=== PATIENT | female | born 1945 | race Caucasian/White ===

== ENCOUNTER 2019-11-22 20:14 | Emergency (ER) | payer OTHER ==
[2019-11-22] MEDS ORDERED: SODIUM CHLORIDE 1,000 ML IV STA (20:33)
[2019-11-22] MEDS ORDERED: FAMOTIDINE 20 MG/50 ML IVPB 20 MG/50 ML MG IVPB ONE ×2 (20:33→21:12)
--- NOTE | 2019-11-22 20:33 | PDOC ---
Rapid Medical Evaluation Time Seen by Provider: 11/22/19 20:26 Medical Evaluation: 11/22/19 20:29 I performed a brief in-person evaluation of this patient. Pt is a 74 y/o female who presents to the ED with complaint of abdominal pain in the epigastrum and blood in her stool. Blood in stool has been about 1 week. The epigastric pain has been for the last 2 months. She admits to nausea. She was seen by her doctor and is to be scheduled for an endoscopy. H/o HLD, heart murmur, nodules in lungs. Pertinent physical exam findings: uncomfortable appearing but not toxic, no pallor, no respiratory distress. I have ordered the following: labs, defer imaging to ED provider Patient to proceed to ED for further evaluation. Discharge Disposition - Diagnosis Blood in stool - Referrals - Patient Instructions - Post Discharge Activity
[2019-11-22 20:34] VITALS: TEMP 98.4; BMI 20.1
[2019-11-22 21:36] LABS: BASO % 0.3 % (0-2.0); HEMATOCRIT 41.7 % (32.4-45.2); HEMOGLOBIN 13.8 GM/dL (10.7-15.3); LYMPH % 28.7 % (8-40); MCH 31.4 pg (25.7-33.7); MCHC 33.1 g/dl (32.0-36.0); MEAN CELL VOLUME 94.7 fl (80-96); MEAN PLT VOLUME 8.1 fl (7.5-11.1); MONO % 8.7 % (3.8-10.2); NEUT % 61.3 % (42.8-82.8); PLATELET COUNT 309 K/MM3 (134-434); RDW 13.6 % (11.6-15.6); WHITE BLOOD COUNT 8.2 K/mm3 (4.0-10.0)
[2019-11-22 22:11] LABS: ALBUMIN 4.2 g/dl (3.4-5.0); ALK PHOS 64 U/L (45-117); ANION GAP 10 MMOL/L (8-16); BLOOD UREA NITROGEN 13.6 mg/dL (7-18); CALCIUM 9.4 mg/dL (8.5-10.1); CHLORIDE 103 mmol/L (98-107); CO2 27 mmol/L (21-32); CREATININE 0.8 mg/dL (0.55-1.3); GLUCOSE,RANDOM 103 mg/dL (74-106); LIPASE 218 U/L (73-393); SGOT/AST 27 U/L (15-37); SGPT/ALT 22 U/L (13-61); SODIUM 139 mmol/L (136-145); TOT PROT 7.7 g/dl (6.4-8.2)
--- NOTE | 2019-11-22 23:23 | PDOC ---
History of Present Illness - General History Source: Patient, Family Exam Limitations: Language Barrier - History of Present Illness Initial Comments: 11/22/19 23:02 Patient is a 74 year old female with history of "murmur" and cholecystectomy presents to the ED with 2 months of epigastric burning and chest pressure, which is constant and does not change with eating. She states that food feels "stuck" in her throat upon swallowing, but does not have painful swallowing. She has occasional nausea without vomiting. Occasional night sweats but not sure how often. She has lack of appetite and unintentional weight loss of nearly 15 lbs over 2 months. She's had hematochezia with every bowel movement for 1 week, described as bright red, and denies pain with defecation. She had been working on getting an endoscopy done with GI, but has been having difficulty with scheduling. She also reports chest pain, occasional SOB with exertion, orthopnea, but denies LE edema and cough. No history of blood clots and is not on a blood thinner. Denies lightheadedness, dizziness, and syncope. <Pj Faulkner - Last Filed: 11/23/19 02:06> <Janette Cardenas - Last Filed: 11/23/19 02:15> - General Chief Complaint: Rectal Bleed Stated Complaint: RECTAL BLEEDING Time Seen by Provider: 11/22/19 20:26 Past History - Medical History Cardiac Disorders: Yes (heart murmur) COPD: No Hypercholesterolemia: Yes Other medical history: lung nodules - Surgical History Cholecystectomy: Yes - Psycho-Social/Smoking History Smoking History: Never smoked - Substance Abuse Hx (Audit-C & DAST Scrn) How often the patient has a drink containing alcohol: Never Score: In Men: 4 or > Positive; In Women: 3 or > Positive: 0 Screen Result (Pos requires Nsg. Audit-10AR): Negative <Pj Faulkner - Last Filed: 11/23/19 02:06> <Janette Cardenas - Last Filed: 11/23/19 02:15> - Medical History Allergies/Adverse Reactions: Allergies Allergy/AdvReac Type Severity Reaction Status Date / Time No Known Allergies Allergy Verified 11/22/19 20:34 Home Medications: Ambulatory Orders Famotidine [Pepcid -] 20 mg PO DAILY #30 tablet 07/04/20 Nitrofurantoin Monohyd/M-Cryst [Macrobid -] 100 mg PO BID #6 capsule 11/23/19 Review of Systems - Review of Systems Able to Perform ROS?: Yes Is the patient limited Armenian proficient: No Constitutional: Yes: Loss of Appetite, Night Sweats, Unintentional Wgt. Loss (about 15 lbs of weight loss). No: Fever HEENTM: Yes: Difficulty Swallowing. No: Throat Pain Respiratory: Yes: Orthopnea, Shortness of Breath, SOB with Exertion. No: Cough, SOB at Rest Cardiac (ROS): Yes: Chest Pain, Chest Tightness. No: Edema, Lightheadedness, Pa lpitations, Syncope ABD/GI: Yes: Blood Streaked Bowels, Difficulty Swallowing, Nausea, Poor Appetite, Poor Fluid Intake, Rectal Bleeding. No: Abd. Pain w/ defecation, Constipated, Diarrhea, Vomiting : No: Burning, Dysuria Neurological: No: Numbness, Tingling, Dizziness <Pj Faulkner - Last Filed: 11/23/19 02:06> *Physical Exam - Vital Signs Last Vital Signs Temp Pulse Resp BP Pulse Ox 98.4 F 87 18 137/61 98 11/22/19 20:31 11/22/19 20:31 11/22/19 20:31 11/22/19 20:31 11/22/19 20:31 - Physical Exam General Appearance: Yes: Nourished, Appropriately Dressed, Apparent Distress Neck: positive: Trachea midline Respiratory/Chest: positive: Lungs Clear, Normal Breath Sounds. negative: Respiratory Distress Cardiovascular: positive: Regular Rhythm, Regular Rate, S1, S2 Gastrointestinal/Abdominal: positive: Tender (epigastric tenderness), Soft. negative: Guarding, Rebound Rectal Exam: positive: heme negative stool, normal exam. negative: hemorrhoids Musculoskeletal: positive: Normal Inspection Integumentary: positive: Normal Color, Dry, Warm Neurologic: positive: Fully Oriented, Alert, Normal Mood/Affect <Pj Faulkner - Last Filed: 11/23/19 02:06> - Vital Signs Last Vital Signs Temp Pulse Resp BP Pulse Ox 98.4 F 68 18 119/52 L 98 11/22/19 20:31 11/22/19 23:40 11/22/19 23:40 11/22/19 23:40 11/22/19 23:40 <Janette Cardenas - Last Filed: 11/23/19 02:15> ED Treatment Course - LABORATORY CBC & Chemistry Diagram: 11/22/19 21:05 11/22/19 21:05 - ADDITIONAL ORDERS Additional order review: Laboratory Results 11/22/19 21:05 Sodium 139 Potassium 4.0 Chloride 103 Carbon Dioxide 27 Anion Gap 10 BUN 13.6 Creatinine 0.8 Est GFR (CKD-EPI)AfAm 84.18 Est GFR (CKD-EPI)NonAf 72.63 Random Glucose 103 Calcium 9.4 Total Bilirubin 1.0 AST 27 ALT 22 Alkaline Phosphatase 64 Creatine Kinase 228 H Creatine Kinase Index 0.5 CK-MB (CK-2) 1.3 Troponin I < 0.02 Total Protein 7.7 Albumin 4.2 Lipase 218 11/22/19 21:05 RBC 4.40 MCV 94.7 MCHC 33.1 RDW 13.6 MPV 8.1 Neutrophils % 61.3 Lymphocytes % 28.7 Monocytes % 8.7 Eosinophils % 1.0 Basophils % 0.3 - Medications Given in the ED: ED Medications Discontinued Medications Generic Name Dose Route Start Last Admin Trade Name Freq PRN Reason Stop Dose Admin Sodium Chloride 1,000 mls @ 1,000 mls/hr 11/22/19 20:33 11/22/19 21:10 Normal Saline - IV 11/22/19 21:32 1,000 mls/hr ASDIR STA Administration Famotidine/Sodium Chloride 20 mg in 50 mls @ 100 mls/hr 11/22/19 20:33 11/22/19 21:10 Pepcid 20 Mg Premixed Ivpb - IVPB 11/22/19 21:02 100 mls/hr ONCE ONE Administration <Pj Faulkner - Last Filed: 11/23/19 02:06> - LABORATORY CBC & Chemistry Diagram: 11/22/19 21:05 11/22/19 21:05 - ADDITIONAL ORDERS Additional order review: Laboratory Results 11/22/19 11/22/19 11/22/19 23:00 22:50 21:05 Sodium 139 Potassium 4.0 Chloride 103 Carbon Dioxide 27 Anion Gap 10 BUN 13.6 Creatinine 0.8 Est GFR (CKD-EPI)AfAm 84.18 Est GFR (CKD-EPI)NonAf 72.63 Random Glucose 103 Calcium 9.4 Total Bilirubin 1.0 AST 27 ALT 22 Alkaline Phosphatase 64 Creatine Kinase 228 H Creatine Kinase Index 0.5 CK-MB (CK-2) 1.3 Troponin I < 0.02 Total Protein 7.7 Albumin 4.2 Lipase 218 Urine Color Yellow Urine Appearance Clear Urine pH 7.0 Ur Specific [place] 1.0007 L Urine Protein Negative Urine Glucose (UA) Negative Urine Ketones Negative Urine Blood Negative Urine Nitrite Negative Urine Bilirubin Negative Urine Urobilinogen 1.0 Ur Leukocyte Esterase 1+ H Urine WBC (Auto) 0-5 Urine RBC (Auto) 0-2 Urine Casts (Auto) 0 U Epithel Cells (Auto) 0-5 Urine Bacteria (Auto) Few Stool Occult Blood Negative 11/22/19 21:05 RBC 4.40 MCV 94.7 MCHC 33.1 RDW 13.6 MPV 8.1 Neutrophils % 61.3 Lymphocytes % 28.7 Monocytes % 8.7 Eosinophils % 1.0 Basophils % 0.3 - Medications Given in the ED: ED Medications Discontinued Medications Generic Name Dose Route Start Last Admin Trade Name Enriqueq PRN Reason Stop Dose Admin Sodium Chloride 1,000 mls @ 1,000 mls/hr 11/22/19 20:33 11/22/19 21:10 Normal Saline - IV 11/22/19 21:32 1,000 mls/hr ASDIR STA Administration Famotidine/Sodium Chloride 20 mg in 50 mls @ 100 mls/hr 11/22/19 20:33 11/22/19 21:10 Pepcid 20 Mg Premixed Ivpb - IVPB 11/22/19 21:02 100 mls/hr ONCE ONE Administration <Janette Cardenas - Last Filed: 11/23/19 02:15> Medical Decision Making - Medical Decision Making 74 year old female presented to the ED with 2 months of epigastric burning and unintentional weight loss, and 1 week of rectal bleeding. Labs were done including CBC, CMP, and UA, which were unremarkable. Hemoccult test was negative for rectal bleeding. Troponin negative. Abdominal and pelvic CT with contrast was done and demonstrated diverticulitis without diverticulitis. She reported feeling some improvement with pepsid. UA demonstrated possible UTI with +1 leukocyte esterase and few bacteria and WBCs, and since she has low oral fluid intake, she will be discharged with macrobid. Patient will follow up with GI outpatient. <Pj Faulkner - Last Filed: 11/23/19 02:06> Discharge - Discharge Information Problems reviewed: Yes - Admission No <Pj Faulkner - Last Filed: 11/23/19 02:06> - Discharge Information Problems reviewed: Yes <Janette Cardenas - Last Filed: 11/23/19 02:15> - Discharge Information Clinical Impression/Diagnosis: Blood in stool, Dysuria, Gastritis Condition: Improved Disposition: HOME - Additional Discharge Information Prescriptions: Nitrofurantoin Monohyd/M-Cryst [Macrobid -] 100 mg PO BID #6 capsule Famotidine [Pepcid -] 20 mg PO DAILY #30 tablet - Patient Discharge Instructions Patient Printed Discharge Instructions: Eating a Diet Rich in Fruits and Vegetables
[2019-11-22 23:38] LABS: URINE COLOR YELLOW
[2019-11-22 23:39] LABS: URINE APPEARANCE CLEAR; URINE BILIRUBIN NEGATIVE (NEGATIVE); URINE GLUCOSE (UA) NEGATIVE (NEGATIVE); URINE KETONE NEGATIVE (NEGATIVE)
[2019-11-22 23:40] LABS: URINE NITRITE NEGATIVE (NEGATIVE); URINE PROTEIN NEGATIVE (NEGATIVE)
[2019-11-22 23:41] LABS: URINE LEUK ESTERASE 1+ (NEGATIVE)
--- NOTE | 2019-11-22 23:45 | PDOC ---
Documentation entered by Emperatriz Mcallister SCRIBE, acting as scribe for Remi Pino MD. Remi Pino MD: This documentation has been prepared by the Ary westbrook Brenda, SCRIBE, under my direction and personally reviewed by me in its entirety. I confirm that the documentation accurately reflects all work, treatment, procedures, and medical decision making performed by me. Attending Attestation - Resident Resident Name: Kishore Sharma - ED Attending Attestation I have performed the following: I have examined & evaluated the patient, The case was reviewed & discussed with the resident, I agree w/resident's findings & plan, Exceptions are as noted - HPI HPI: 11/22/19 23:09 The patient is a 74 year old female with a significant PMH of unspecified murmor who presents to the ED for evaluation of 1 week of blood in the stool. Patient reports no pain with defecation and blood Mixed with brown stool in every bowel movement for the past 2 weeks. Patient notes that for the past 2 months she has been having a burning epigastric pain And a sensation that the food is not passing completely into her stomach,. She also endorses a loss of appetite and unintended weight loss, about 15 pounds in 2 months. She also reports occasional night sweats and nausea with no vomiting. Patient notes she is supposed to have an endoscopy with her GI, but has had trouble setting up. She denies any current chest pain, shortness of breath, exertional worsening of her symptoms. She denies any pain with Bowel movements, dysuria, back pain, fever, chills, lightheadedness, palpitations. Allergies: NKA - Physicial Exam PE: 11/22/19 23:39 GENERAL: The patient is awake, alert, and fully oriented, Nontoxic - in no acute distress. HEAD: Normocephalic, atraumatic. EYES: extraocular movements intact, sclera anicteric, conjunctiva clear. ENT: Normal voice, Moist mucous membranes. NECK: Normal range of motion, supple LUNGS: Breath sounds equal, clear to auscultation bilaterally. No wheezes, no rhonchi, no rales. HEART: Regular rate and rhythm, normal S1 and S2 without murmur, rub or gallop. ABDOMEN: Soft, mild lower abd tenderness, No guarding, no rebound. No CVA tenderness EXTREMITIES: Normal range of motion, no edema. NEUROLOGICAL: No facial assymetry, Normal speech, PSYCH: Normal mood, normal affect. SKIN: Warm, Dry, normal turgor, - Medical Decision Making 11/22/19 23:43 Differential for the patient's symptoms includes gastritis/GERD, consider possible malignancy, Diverticulitis, diverticulosis, hemorrhoidal bleeding No signs of external hemorrhoids or active bleeding on rectal exam, guaiac is negative. Patient blood work is unremarkable, patient does have some lower abdominal tenderness, will obtain CT of the abdomen to rule out diverticulitis versus appendicitis Patient is well-appearing otherwise, if work-up is negative will have the patient follow-up with GI to continue management Heart Score/ECG Review - ECG Impressions Comment:: 11/23/19 00:14 Twelve-lead EKG was performed and reviewed by me. There is normal sinus rhythm with a normal rate. Rate of 68 Left anterior fascicular block No ST changes suggestive of acute ischemia Discharge - Discharge Information Problems reviewed: Yes Clinical Impression/Diagnosis: Blood in stool, Dysuria Gastritis Qualifiers: Gastritis type: unspecified gastritis Chronicity: acute Gastritis bleeding: without bleeding Qualified Code(s): K29.00 - Acute gastritis without bleeding Condition: Improved Disposition: HOME - Additional Discharge Information Prescriptions: Nitrofurantoin Monohyd/M-Cryst [Macrobid -] 100 mg PO BID #6 capsule Famotidine [Pepcid -] 20 mg PO DAILY #30 tablet - Follow up/Referral - Patient Discharge Instructions Patient Printed Discharge Instructions: Eating a Diet Rich in Fruits and Vegetables - Post Discharge Activity
[2019-11-22 23:59] LABS: EPI CELLS 0-5 /uL (0-25.1); HYALINE CASTS 0 /uL (0-3.1); URINE RBC 0-2 /uL (0-23.9); URINE WBC 0-5 /uL (0-25.8)
[2019-11-23] LABS: URINE BACTERIA FEW /uL (0-1359)
--- NOTE | 2019-11-23 01:25 | PDOC ---
*Physical Exam - Vital Signs Last Vital Signs Temp Pulse Resp BP Pulse Ox 98.4 F 68 18 119/52 L 98 11/22/19 20:31 11/22/19 23:40 11/22/19 23:40 11/22/19 23:40 11/22/19 23:40 ED Treatment Course - LABORATORY CBC & Chemistry Diagram: 11/22/19 21:05 11/22/19 21:05 - ADDITIONAL ORDERS Additional order review: Laboratory Results 11/22/19 11/22/19 11/22/19 23:00 22:50 21:05 Sodium 139 Potassium 4.0 Chloride 103 Carbon Dioxide 27 Anion Gap 10 BUN 13.6 Creatinine 0.8 Est GFR (CKD-EPI)AfAm 84.18 Est GFR (CKD-EPI)NonAf 72.63 Random Glucose 103 Calcium 9.4 Total Bilirubin 1.0 AST 27 ALT 22 Alkaline Phosphatase 64 Creatine Kinase 228 H Creatine Kinase Index 0.5 CK-MB (CK-2) 1.3 Troponin I < 0.02 Total Protein 7.7 Albumin 4.2 Lipase 218 Urine Color Yellow Urine Appearance Clear Urine pH 7.0 Ur Specific [place] 1.0007 L Urine Protein Negative Urine Glucose (UA) Negative Urine Ketones Negative Urine Blood Negative Urine Nitrite Negative Urine Bilirubin Negative Urine Urobilinogen 1.0 Ur Leukocyte Esterase 1+ H Urine WBC (Auto) 0-5 Urine RBC (Auto) 0-2 Urine Casts (Auto) 0 U Epithel Cells (Auto) 0-5 Urine Bacteria (Auto) Few Stool Occult Blood Negative 11/22/19 21:05 RBC 4.40 MCV 94.7 MCHC 33.1 RDW 13.6 MPV 8.1 Neutrophils % 61.3 Lymphocytes % 28.7 Monocytes % 8.7 Eosinophils % 1.0 Basophils % 0.3 - Medications Given in the ED: ED Medications Discontinued Medications Generic Name Dose Route Start Last Admin Trade Name Freq PRN Reason Stop Dose Admin Sodium Chloride 1,000 mls @ 1,000 mls/hr 11/22/19 20:33 11/22/19 21:10 Normal Saline - IV 11/22/19 21:32 1,000 mls/hr ASDIR STA Administration Famotidine/Sodium Chloride 20 mg in 50 mls @ 100 mls/hr 11/22/19 20:33 11/22/19 21:10 Pepcid 20 Mg Premixed Ivpb - IVPB 11/22/19 21:02 100 mls/hr ONCE ONE Administration Medical Decision Making - Medical Decision Making 11/23/19 01:24 Patient Name: LISETH BEAR THIS IS A PRELIMINARY REPORT FROM [facility] DATE OF SERVICE: 2019-11-23 00:40:23 IMAGES: [id number] EXAM: CT aBDOMEN \T\ PELVIS WITH CONTR HISTORY: Abdominal pain. COMPARISON: None. FINDINGS: Atelectasis versus scarring in the left lingula. Subpleural nodular type opacity measuring 3.5 x 3.7 mm. Normal-sized heart without pericardial effusion. The liver measures 14.2 cm in length and appears mildly hypodense. Cholecystectomy clips with postsurgical prominence of the common bile duct. Unremarkable spleen, pancreas, and adrenals. Normal cortical enhancement in both kidneys. No renal masses. No renal or ureteral calculi and no hydronephrosis. Unremarkable urinary bladder. No bowel obstruction. Partially air-filled appendix without evidence of appendicitis. Diverticulosis of the distal descending and sigmoid colon without evidence of diverticulitis. Normal caliber abdominal aorta. No ascites. 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 Calcifications noted in the left adnexa. Septated cyst in the right ovary measuring 2.2 x 1.4 x 2.6 cm. Degenerative changes in the imaged spine and hips. IMPRESSION: Septated cyst in the right ovary. Colonic diverticulosis without evidence of diverticulitis. Discharge - Discharge Information Problems reviewed: Yes Clinical Impression/Diagnosis: Blood in stool, Dysuria, Gastritis Condition: Improved Disposition: HOME - Additional Discharge Information Prescriptions: Nitrofurantoin Monohyd/M-Cryst [Macrobid -] 100 mg PO BID #6 capsule Famotidine [Pepcid -] 20 mg PO DAILY #30 tablet - Follow up/Referral - Patient Discharge Instructions Patient Printed Discharge Instructions: Eating a Diet Rich in Fruits and Vegetables - Post Discharge Activity
[2019-11-23 04:04] VITALS: BP 123/58; PULSE 62
--- NOTE | 2019-11-24 14:09 | EKG ---
Test Reason : Blood Pressure : / mmHG Vent. Rate : 068 BPM Atrial Rate : 068 BPM P-R Int : 128 ms QRS Dur : 078 ms QT Int : 392 ms P-R-T Axes : 060 -48 054 degrees QTc Int : 416 ms NORMAL SINUS RHYTHM LEFT ANTERIOR FASCICULAR BLOCK ABNORMAL ECG NO PREVIOUS ECGS AVAILABLE Confirmed by MADISON BETTS MD ([id number]) on 11/24/2019 2:09:22 PM Referred By: Confirmed By:MADISON BETTS MD
== END 2019-11-23 02:42 | disposition home or self-care (01) ==
LOC: JER 20:14
PROC: 3E033GC Introduction of Other Therapeutic Substance into Peripheral Vein, Percutaneous Approach (ICD-10-PCS; principal; 2019-11-22)
DX: K29.01 Acute gastritis with bleeding (principal); R30.0 Dysuria
CPT/HCPCS: 36415; 74177-TC; 80053; 81003; 82272; 82550; 82553; 83690; 84484; 85025; 87086; 93005; 93010; 99285-25; Q9967